=== PATIENT | male | born 1965 | race Caucasian/White ===

== ENCOUNTER → 2017-02-23 | Outpatient (CLI) | payer BC ==
[2017-02-23 21:22] LABS: Basophils % (A) 1 %; Eosinophils # (A) 0.3 k/uL (0-0.7); Eosinophils % (A) 3 %; HCT 49.2 % (39.0-53.0); HGB 15.8 gm/dL (13.0-17.5); Lymphocytes # (A) 2.4 k/uL (1.0-4.8); Lymphocytes % (A) 29 %; MCH 28.8 pg (25.0-35.0); MCHC 32.1 g/dL (31.0-37.0); MCV 89.8 fL (80.0-100.0); Mean Platelet Volume 7.3; Monocytes # (A) 0.4 k/uL (0-1.0); Monocytes % (A) 5 %; Neutrophils # (A) 4.9 k/uL (1.3-7.7); Neutrophils % (A) 61 %; Platelet Count 232 k/uL (150-450); RBC 5.47 m/uL (4.30-5.90); RDW 12.8 % (11.5-15.5); WBC 8.1 k/uL (3.8-10.6)
[2017-02-23 21:26] LABS: ALT 29 U/L (21-72); AST 19 U/L (17-59); Albumin 4.7 g/dL (3.5-5.0); Alkaline Phosphatase 90 U/L (38-126); Anion Gap 13 mmol/L; Blood Urea Nitrogen 19 mg/dL (9-20); Calcium 9.9 mg/dL (8.4-10.2); Carbon Dioxide 25 mmol/L (22-30); Chloride 105 mmol/L (98-107); Cholesterol 186 mg/dL (<200); Glucose 101 mg/dL (74-99); HDL Cholesterol 35 mg/dL (40-60); LDL Cholesterol,Calculated 131 mg/dL (0-99); Potassium 4.5 mmol/L (3.5-5.1); Sodium 143 mmol/L (137-145); Total Bilirubin 0.5 mg/dL (0.2-1.3); Total Protein 7.4 g/dL (6.3-8.2); Triglycerides 99 mg/dL (<150)
[2017-02-23 21:33] LABS: T4, Free (Free Thyroxine) 1.11 ng/dL (0.78-2.19)
== END | disposition home or self-care (01) ==
LOC: MMGSC 09:02
PROVIDERS: ATTEND Family Medicine
DX: Z00.00 Encounter for general adult medical examination without abnormal findings (principal)
CPT/HCPCS: 36415; 80053; 80061; 84439; 84443; 85025